=== PATIENT | female | born 1970 | race Caucasian/White ===

== ENCOUNTER 2017-02-20 22:15 | Emergency (ER) | payer SELFPAY ==
[~2017-02-20] VITALS: Ht 154.9 cm; Wt 80.2 kg
[~2017-02-20 22:15] MED LIST: COLACE100 MG PO; DILAUDID2 MG PO; DOXYCYCLINE HY100 MG PO; ESCITALOPRAM OX10 MG; HYCODAN SYRUP480 ML PO; MECLIZINE HCL25 MG; TOPAMAX50 MG PO; TRAMADOL HCL50 MG PO; VICODIN 5-3001 EACH PO
[2017-02-21] MEDS ORDERED: NORCO 7.5/321 TABLET PO (00:19)
[2017-02-21 00:28] VITALS: BP 121/71
== END 2017-02-21 00:30 | disposition home or self-care (01) ==
LOC: EME 22:15
DX: F07.81 Postconcussional syndrome (principal); G43.909 Migraine, unspecified, not intractable, without status migrainosus
CPT/HCPCS: 99281; 99283

== ENCOUNTER 2018-03-24 12:12 | Emergency (ER) | payer OTHER ==
[~2018-03-24] VITALS: Ht 154.9 cm; Wt 75.7 kg
[~2018-03-24 12:12] MED LIST changes: +NORCO 7.5/321 TABLET PO
[2018-03-24 16:35] LABS: HEMATOCRIT 38.3 % (36.0-46.0); HEMOGLOBIN 12.9 G/DL (11.9-15.5); MCH 30.8 PG (29.0-34.0); MCHC 33.7 G/DL (30.0-36.0); MCV 91.4 FL (83-99); PLATELET COUNT 242 K/uL (156-360); RBC DIS.WIDTH-CV 12.6 % (11.8-14.6); RED BLOOD COUNT 4.19 M/uL (3.80-5.20); WHITE BLOOD COUNT 9.7 K/uL (4.1-10.2)
[2018-03-24 16:43] LABS: CHLORIDE 107 mEq/L (99-109); POTASSIUM 3.7 mEq/L (3.7-5.4); SODIUM 141 mEq/L (136-147)
[2018-03-24 16:45] LABS: GLUCOSE 126 mg/dL (70-99)
[2018-03-24 16:47] LABS: TOTAL BILIRUBIN 0.4 mg/dL (0.0-1.0)
[2018-03-24 16:48] LABS: ALKALINE PHOSPHATASE 76 IU/L (3-129)
[2018-03-24 16:49] LABS: CREATININE 0.7 mg/dL (0.6-1.3); GFR ESTIMATE (CALCULATED) > 59 mL/min/
[2018-03-24 16:50] LABS: AST (GOT) 17 IU/L (2-34); UREA NITROGEN (BUN) 16 mg/dL (9-23)
[2018-03-24 16:51] LABS: ALT (GPT) 26 IU/L (3-49)
[2018-03-24 16:59] LABS: QUANTITATIVE HCG < 4.0 MIU/ML
[2018-03-24] MEDS ORDERED: TRAMADOL HCL50 MG PO (18:27)
[2018-03-24] MEDS ORDERED: TORADOL10 MG PO (18:29)
[2018-03-24] MEDS ORDERED: MEDROL DOSEPAK4 MG PO (18:29)
[2018-03-24 18:50] VITALS: BP 131/83
[2018-03-24 18:58] LABS: C-REACTIVE PROTEIN 5.6 MG/L (0-10)
[2018-03-24 20:35] LABS: ERTH.SED.RATE 21 MM/HR (0-20)
== END 2018-03-24 18:56 | disposition home or self-care (01) ==
LOC: EME 12:12
PROVIDERS: Physician Assistant
DX: G43.109 Migraine with aura, not intractable, without status migrainosus (principal); Z88.2 Allergy status to sulfonamides; Z91.040 Latex allergy status
CPT/HCPCS: 80053; 82948; 84702; 85027; 85651; 86140; 99281; 99285; J1100; J1200; J1885